=== PATIENT | male | born 1960 | race African-American/Black ===

== ENCOUNTER → 2016-06-28 | Emergency (ER) | payer OTHER ==
[~2016-06-28] VITALS: Ht 175.3 cm; Wt 90.7 kg
[~2016-06-28] MED LIST: NORCO 5-325 TA1 EACH ORAL; ROBAXIN-750750 MG PO
[2016-06-28 14:07] VITALS: BP 149/83
[2016-06-28 15:01] VITALS: BP 149/83
--- NOTE | 2016-06-28 17:30 | Emergency Room Report ---
History of Present Illness General Chief Complaint: Back Pain-No Injury Source: Patient Present Illness HPI Patient presents with complaints of neck and low back pain States that he has had arthritis And long-standing pain for the last 2 years Denies any chest pain shortness of breath denies any acute fall or trauma Patient complains of an exacerbation of his underlying condition He reports that he has had difficulty obtaining pain medication And requesting muscle relaxers Most of the discomfort is paraspinal in the C2-3-4 area Also L345 region Denies any focal weakness Allergies: Coded Allergies: No Known Allergies (Unverified , 06/28/16) Patient History Past Medical History: see triage record Pertinent Family History: none Reviewed Nursing Documentation: PMH: Agreed, PSxH: Agreed Nursing Documentation-PMH Hx COPD: Yes Review of Systems All Other Systems: negative except mentioned in HPI Physical Exam Vital Signs Date Time Temp Pulse Resp B/P Pulse Ox O2 Delivery O2 Flow Rate FiO2 06/28/16 13:35 98.1 76 16 149/83 99 06/28/16 14:07 Room Air Sp02 EP Interpretation: reviewed, normal General Appearance: well appearing, no apparent distress Head: normocephalic, atraumatic Eyes: bilateral eye EOMI, bilateral eye PERRL ENT: hearing grossly normal, normal pharynx, TMs + canals normal, uvula midline Neck: supple, no meningismus, no bony tend Respiratory: lungs clear, normal breath sounds, no rhonchi, no respiratory distress, no retraction, no accessory muscle use Cardiovascular #1: normal peripheral pulses, regular rate, rhythm, no edema, no gallop, no JVD, no murmur Gastrointestinal: normal bowel sounds, non tender, soft, no mass, no organomegaly, non-distended, no guarding, no hernia, no pulsatile mass, no rebound Genitourinary: no CVA tenderness Musculoskeletal: other - Mild discomfort paraspinal C2-3-4, no midline some thoughts, also discomfort L3-4-5 her spinal no midline step-offs, sensory intact Neurologic: oriented x3, responsive, pediatric nurse III-XII nml as tested, motor strength/ tone normal, sensory intact Psychiatric: mood/affect normal Skin: normal color, no rash, warm/dry, palpation normal Lymphatic: normal inspection, no adenopathy Medical Decision Making Diagnostic Impression: Primary Impression: Back pain ER Course Patient appears to have an acute presentation of an underlying chronic pathology requesting Pain relief Denies any neurological deficits We did discuss possible further studies and imaging however her posterior he's had this problem for 2 years And will have close outpatient followup, Last Vital Signs Date Time Temp Pulse Resp B/P Pulse Ox O2 Delivery O2 Flow Rate FiO2 06/28/16 15:01 98.1 76 16 149/83 99 Room Air Status: improved Disposition: HOME, SELF-CARE Condition: Improved Scripts Methocarbamol* (ROBAXIN-750*) 750 Mg Tablet 750 MG PO TID, #21 TAB 0 Refills Prov: GABE SINGER D.O. 06/28/16 Hydrocodone Bit/Acetaminophen 5-325* (NORCO 5-325*) 1 Each Tablet 1 TAB ORAL Q6H Y for For Pain, #10 TAB 0 Refills Prov: GABE SINGER D.O. 06/28/16 Referrals: [facility]ERR[facility] (PCP) Patient Instructions: Back Pain, Adult Additional Instructions: Patient is provided with the discharge instructions notified to follow up with primary doctor in the next 2-3 days otherwise return to the er with any worsening symptoms. Please note that this report is being documented using [employer] technology. This can lead to erroneous entry secondary to incorrect interpretation by the dictating instrument. GABE SINGER D.O. Jun 28, 2016 17:30
== END | disposition home or self-care (01) ==
LOC: EDSEX 13:12 → EMR 14:20
DX: M54.9 Dorsalgia, unspecified (principal); M19.90 Unspecified osteoarthritis, unspecified site; J44.9 Chronic obstructive pulmonary disease, unspecified
CPT/HCPCS: 99284